=== PATIENT | male | born 1980 | race Caucasian/White ===

== ENCOUNTER 2024-09-05 10:07 | Emergency (ER) | payer MEDICARE ==
[~2024-09-05] VITALS: Ht 165.1 cm; Wt 86.2 kg
[2024-09-05 10:16] VITALS: BP 141/81; TEMP 98.3; O2SAT 98
[2024-09-05] MEDS ORDERED: IV NS 0.9% 1,000 ML BAG IV ONE (10:30)
[2024-09-05] MEDS ORDERED: LORAZEPAM 1 MG TABLET PO ONE (10:30)
== END 2024-09-05 10:42 | disposition left against medical advice (07) ==
LOC: ER 10:13
DX: F15.10 Other stimulant abuse, uncomplicated (principal); M54.2 Cervicalgia; R07.9 Chest pain, unspecified; R10.9 Unspecified abdominal pain; I10 Essential (primary) hypertension; J45.909 Unspecified asthma, uncomplicated; Z86.73 Personal history of transient ischemic attack (TIA), and cerebral infarction without residual deficits; W50.0XXA Accidental hit or strike by another person, initial encounter; Y93.89 Activity, other specified; Y92.89 Other specified places as the place of occurrence of the external cause; Y99.8 Other external cause status
CPT/HCPCS: 99283; J7030